=== PATIENT | female | born 1995 ===

== ENCOUNTER 2017-01-22 12:49 | Emergency (ER) | payer BC ==
[2017-01-22 13:08] VITALS: BP 137/102
[2017-01-22] MEDS ORDERED: Albuterol 2.5 MG/3 ML NEB.SOL* (0.083%) INH ONE (13:26)
--- NOTE | 2017-01-22 13:41 | UC ---
Respiratory Complaint HPI - HPI Summary HPI Summary: cough/ chest congestion x 8 days + nasal congestion , wheezing , no fever, + chills, cough is dry - History of Current Complaint Chief Complaint: UCRespiratory Stated Complaint: COUGH/STOMACH ACHE Time Seen by Provider: 01/22/17 13:22 Hx Obtained From: Patient Hx Last Menstrual Period: November, was on depo, period irreg over last year ?: No Onset/Duration: Gradual Onset, Lasting Days - 8, Still Present Timing: Constant Severity Initially: Moderate Severity Currently: Moderate Character: Cough: Nonproductive Aggravating Factors: Exertion, Deep Breaths Alleviating Factors: Nothing Associated Signs And Symptoms: Positive: Dyspnea, Chills, Wheezing, URI, Nasal Congestion. Negative: Fever, Dizziness, Calf Pain, Calf Swelling - Allergies/Home Medications Allergies/Adverse Reactions: Allergies Allergy/AdvReac Type Severity Reaction Status Date / Time Latex Allergy Hives Verified 01/22/17 13:08 PMH/Surg Hx/FS Hx/Imm Hx Respiratory History: Asthma - Surgical History Surgical History: None - Family History Known Family History: Negative: Renal Disease - Social History Alcohol Use: None Substance Use Type: None Smoking Status (MU): Never Smoked Tobacco Review of Systems Constitutional: Negative Skin: Negative Eyes: Negative ENT: Nasal Discharge Respiratory: Shortness Of Breath, Cough Cardiovascular: Negative Is Patient Immunocompromised?: No All Other Systems Reviewed And Are Negative: Yes Physical Exam Triage Information Reviewed: Yes Appearance: Well-Appearing, No Pain Distress, Well-Nourished Vital Signs: Initial Vital Signs Temp 97.8 F 01/22/17 13:03 Pulse 93 01/22/17 13:03 Resp 16 01/22/17 13:03 BP 137/102 01/22/17 13:03 Pulse Ox 94 01/22/17 13:03 Vital Signs Reviewed: Yes Eyes: Positive: Conjunctiva Clear ENT: Positive: Normal ENT inspection, Hearing grossly normal, Pharynx normal, Nasal congestion. Negative: Nasal drainage, TMs normal Neck exam: Normal Neck: Positive: Supple, Nontender, No Lymphadenopathy Respiratory: Positive: Chest non-tender, Wheezing. Negative: Crackles Cardiovascular: Positive: RRR, No Murmur, Pulses Normal Skin Exam: Normal UC Diagnostic Evaluation - Laboratory O2 Sat by Pulse Oximetry: 94 Respiratory Course/Dx - Differential Dx/Diagnosis Provider Diagnoses: BRONCHITIS Discharge - Discharge Plan Condition: Stable Disposition: HOME Prescriptions: Albuterol HFA INHALER* [Ventolin HFA Inhaler*] 1 - 2 puff INH Q6H PRN #1 mdi PRN Reason: Wheezing Azithromycin TAB* [Zithromax TAB (Z-CARYN) 250 mg #6 tabs] 2 tab PO .TODAY, THEN 1 DAILY #1 caryn predniSONE TAB* [Deltasone TAB*] 40 mg PO DAILY #10 tab Patient Education Materials: Acute Bronchitis (ED) Referrals: Non Staff,Doctor [Primary Care Provider] - 7 Days
== END 2017-01-22 14:10 | disposition home or self-care (01) ==
LOC: UCCORT 12:49
DX: J45.909 Unspecified asthma, uncomplicated (principal)
CPT/HCPCS: 99202; G0463

== ENCOUNTER 2020-09-06 09:53 | Inpatient (IN) ==
[2020-09-06] MEDS ORDERED: Al Hydrox/Mg Hydrox/Simet LIQ 30 ML UDC PO PRN (19:23)
[2020-09-06] MEDS ORDERED: chlorproMAZINE TAB 50 MG Q6H PRN AGITATION PO (20:00)
[2020-09-06] MEDS ORDERED: diPHENhydraMINE IV 50 MG/ML 1 ml VIAL (BENADRYL) IM ONE (20:00)
[2020-09-06] MEDS ORDERED: LORazepam 2 mg VIAL 1 ml IM ONE (20:00)
[2020-09-06] MEDS ORDERED: Haloperidol 5 mg/ml SDV IV/IM 5 MG/ML AMP IM ONE (20:00)
[2020-09-07] MEDS: Vitamin THERAPEUTIC TAB PO SCH (09:16)
[2020-09-08 06:42] LABS: ABS Basophils 0.1 10^3/ul (0-0.2); ABS Eosinophils 0.2 10^3/ul (0-0.6); ABS Lymphocytes 2.3 10^3/ul (1.0-4.8); ABS Monocytes 0.5 10^3/ul (0-0.8); ABS Neutrophils 2.5 10^3/ul (1.5-7.7); Eosinophil % 4.2 %; Hematocrit 40 % (35-47); Hemoglobin 13.6 g/dL (12.0-16.0); Lymphocyte % 41.8 %; Mean Corpuscular HGB Conc 34 g/dL (31-36); Mean Corpuscular Hemoglobin 29 pg (27-31); Mean Corpuscular Volume 85 fL (80-97); Mean Platelet Volume 8.2 fL (7.4-10.4); Nucleated Red Blood Cells % 0.1; Platelet Count 180 10^3/uL (150-450); Red Cell Distribution Width 14 % (10-15); White Blood Count 5.6 10^3/uL (3.5-10.8)
[2020-09-08 06:59] LABS: Albumin 4.2 g/dL (3.2-5.2); Albumin/Globulin Ratio 1.5 (1-3); Calcium 9.4 mg/dL (8.6-10.3); EGFR Non-African American 70.3 (>60); Globulin 2.8 g/dL (2-4); HDL Cholesterol 26.4 mg/dL; Potassium 3.7 mmol/L (3.5-5.0); Total Bilirubin 0.8 mg/dL (0.2-1.0)
[2020-09-08 07:00] LABS: Acetaminophen < 15 mcg/mL; Alcohol, S < 10 mg/dL (<10); Salicylate < 2.50 mg/dL (<30)
[2020-09-08 07:15] LABS: TSH Ultra Thyroid Stim Horm 3.04 mcIU/mL (0.34-5.60)
[2020-09-08] MEDS: Vitamin THERAPEUTIC TAB PO SCH ×2 (09:01→10:00)
[2020-09-09] MEDS: Vitamin THERAPEUTIC TAB PO SCH (07:36)
[2020-09-10] MEDS: Vitamin THERAPEUTIC TAB PO SCH (09:15)
[2020-09-11] MEDS: Vitamin THERAPEUTIC TAB PO SCH (09:07)
[2020-09-12] MEDS: Vitamin THERAPEUTIC TAB PO SCH (09:04)
[2020-09-13] MEDS: Vitamin THERAPEUTIC TAB PO SCH (09:31)
[2020-09-14] MEDS: Vitamin THERAPEUTIC TAB PO SCH (08:27)
[2020-09-15] MEDS: Vitamin THERAPEUTIC TAB PO SCH (10:01)
[2020-09-16] MEDS: Vitamin THERAPEUTIC TAB PO SCH (09:56)
[2020-09-17] MEDS: Vitamin THERAPEUTIC TAB PO SCH (09:01)
[2020-09-18] MEDS: Vitamin THERAPEUTIC TAB PO SCH (08:46)
[2020-09-19] MEDS: Vitamin THERAPEUTIC TAB PO SCH (09:29)
[2020-09-20] MEDS: Vitamin THERAPEUTIC TAB PO SCH (08:50)
[2020-09-21] MEDS: Vitamin THERAPEUTIC TAB PO SCH (11:07)
[2020-09-22] MEDS: Vitamin THERAPEUTIC TAB PO SCH (10:59)
[2020-09-29 09:26] VITALS: BP 110/55
== END 2020-09-29 12:00 | disposition home or self-care (01) | DRG 561 ==
LOC: ED 09:53 → BSU 20:05
PROVIDERS: ADMIT Psychiatry & Neurology Psychiatry; ATTEND Psychiatry & Neurology Psychiatry

== ENCOUNTER 2020-10-05 11:56 | Inpatient (IN) ==
[2020-10-05] MEDS ORDERED: Al Hydrox/Mg Hydrox/Simet LIQ 30 ML UDC PO PRN (16:39)
[2020-10-05 16:56] LABS: Urine Appearance Cloudy; Urine Bilirubin Negative (Negative); Urine Blood Negative (Negative); Urine Color Amber; Urine Glucose Negative (Negative); Urine Ketones 1+ (Negative); Urine Nitrite Negative (Negative); Urine Protein 1+(30 mg/dL) (Negative); Urine Specific Gravity 1.026 (1.002-1.030); Urine Urobilinogen Negative (Negative)
[2020-10-05 17:03] LABS: ABS Basophils 0.1 10^3/ul (0-0.2); ABS Eosinophils 0.1 10^3/ul (0-0.6); ABS Lymphocytes 1.7 10^3/ul (1.0-4.8); ABS Monocytes 0.7 10^3/ul (0-0.8); ABS Neutrophils 8.1 10^3/ul (1.5-7.7); Eosinophil % 0.8 %; Hematocrit 40 % (35-47); Hemoglobin 13.2 g/dL (12.0-16.0); Lymphocyte % 16.2 %; Mean Corpuscular HGB Conc 33 g/dL (31-36); Mean Corpuscular Hemoglobin 29 pg (27-31); Mean Corpuscular Volume 86 fL (80-97); Platelet Count 252 10^3/uL (150-450); Red Cell Distribution Width 15 % (10-15); White Blood Count 10.7 10^3/uL (3.5-10.8)
[2020-10-05 17:09] LABS: Urine Benzodiazepine Screen Presumptive Positive (None Detect); Urine Cannabinoids Screen Presumptive Positive (None Detect); Urine Opiates Screen None Detected (None Detect)
[2020-10-05 17:20] LABS: ALT 14 U/L (7-52); AST 13 U/L (13-39); Albumin 4.9 g/dL (3.2-5.2); Albumin/Globulin Ratio 1.6 (1-3); Alkaline Phosphatase 90 U/L (35-149); Anion Gap 12 mmol/L (2-11); Blood Urea Nitrogen 9 mg/dL (6-24); CO2 Carbon Dioxide 21 mmol/L (22-32); Calcium 9.5 mg/dL (8.6-10.3); Chloride 106 mmol/L (101-111); EGFR African American 89.3 (>60); EGFR Non-African American 73.8 (>60); Glucose 96 mg/dL (70-100); Potassium 3.9 mmol/L (3.5-5.0); Sodium 139 mmol/L (135-145); Total Protein 7.9 g/dL (6.4-8.9)
[2020-10-05 18:03] LABS: Acetaminophen < 15 mcg/mL; Alcohol, S < 13 mg/dL (<13); Salicylate < 2.50 mg/dL (<30)
[2020-10-05 18:04] LABS: Urine Bacteria 1+ (Absent); Urine Red Blood Cell 1+(3-5/hpf) (Absent); Urine Squamous Epithelial Cell Present (Absent); Urine White Blood Cell Trace(0-5/hpf) (Absent)
[2020-10-06 07:57] LABS: HDL Cholesterol 34.5 mg/dL
[2020-10-06] MEDS: Norethindrone 0.35 mg TAB (NF) PO SCH (11:17)
[2020-10-07] MEDS: Norethindrone 0.35 mg TAB (NF) PO SCH (08:31)
[2020-10-08] MEDS: Norethindrone 0.35 mg TAB (NF) PO SCH (10:04)
[2020-10-09] MEDS: Norethindrone 0.35 mg TAB (NF) PO SCH (08:36)
[2020-10-10] MEDS: Lithium Carbonate ER 450mg TAB PO SCH ×2 (10:03→21:30)
[2020-10-10] MEDS: Norethindrone 0.35 mg TAB (NF) PO SCH (10:04)
[2020-10-11] MEDS: Norethindrone 0.35 mg TAB (NF) PO SCH (09:04)
[2020-10-11] MEDS: Lithium Carbonate ER 450mg TAB PO SCH ×2 (09:04→21:11)
[2020-10-12] MEDS: Lithium Carbonate ER 450mg TAB PO SCH ×2 (08:58→21:04)
[2020-10-12] MEDS: Norethindrone 0.35 mg TAB (NF) PO SCH (08:58)
[2020-10-13] MEDS: Lithium Carbonate ER 450mg TAB PO SCH ×2 (09:39→20:58)
[2020-10-13] MEDS: Norethindrone 0.35 mg TAB (NF) PO SCH (09:40)
[2020-10-14] MEDS: Norethindrone 0.35 mg TAB (NF) PO SCH (08:21)
[2020-10-14] MEDS: Lithium Carbonate ER 450mg TAB PO SCH (08:21)
[2020-10-14 09:55] VITALS: BP 99/54
== END 2020-10-14 15:25 | disposition home or self-care (01) | DRG 751 ==
LOC: ED 11:56 → BSU 16:39
PROVIDERS: ADMIT Psychiatry & Neurology Psychiatry; ATTEND Psychiatry & Neurology Psychiatry